=== PATIENT | male | born 1960 | race Caucasian/White ===

== ENCOUNTER 2023-09-21 08:45 | Outpatient (CLI) | payer MEDICARE, BC, SELFPAY | END 2023-09-21 08:46 | disposition home or self-care (01) | PROVIDERS: PCP Family Medicine; Visit Provider Family Medicine | DX: Z00.00 Encounter for general adult medical examination without abnormal findings (principal); E78.2 Mixed hyperlipidemia; I10 Essential (primary) hypertension; Z12.5 Encounter for screening for malignant neoplasm of prostate | CPT/HCPCS: 80048; 80061; 84460; G0103 ==

== ENCOUNTER 2023-10-14 06:21 | Outpatient (CLI) | payer MEDICARE, BC, SELFPAY ==
--- NOTE | 2023-10-14 07:53 | W.ANESCHARGE ---
Anesthesia Charges Start Date/Time Anesthesia Start Date: 10/14/23 Anesthesia Start Time: 07:15 Stop Date/Time Anesthesia Stop Date: 10/14/23 Anesthesia Stop Time: 07:50
--- NOTE | 2023-10-14 09:16 | W.ANESCHARGE ---
Anesthesia Charges Start Date/Time Anesthesia Start Date: 10/14/23 Anesthesia Start Time: 07:15 Stop Date/Time Anesthesia Stop Date: 10/14/23 Anesthesia Stop Time: 07:50
== END 2023-10-14 06:22 | disposition home or self-care (01) ==
LOC: OP CLINIC 06:22
PROVIDERS: PCP Family Medicine; Visit Provider Surgery
DX: Z12.11 Encounter for screening for malignant neoplasm of colon (principal); D12.0 Benign neoplasm of cecum; D12.2 Benign neoplasm of ascending colon; D12.3 Benign neoplasm of transverse colon; D12.5 Benign neoplasm of sigmoid colon; Z83.719 Family history of colon polyps, unspecified
CPT/HCPCS: 00811; 45385; 88305; J2704

== ENCOUNTER 2023-11-15 08:59 | Outpatient (CLI) | payer MEDICARE, BC, SELFPAY | END 2023-11-15 09:00 | disposition home or self-care (01) | PROVIDERS: PCP Family Medicine; Visit Provider Family Medicine | DX: Z01.818 Encounter for other preprocedural examination (principal) | CPT/HCPCS: 80048; 85025 ==

== ENCOUNTER 2025-01-23 08:41 | Outpatient (CLI) | payer MEDICARE, BC, SELFPAY | END 2025-01-23 08:42 | disposition home or self-care (01) | PROVIDERS: PCP Family Medicine; Visit Provider Family Medicine | DX: E78.2 Mixed hyperlipidemia (principal); Z13.9 Encounter for screening, unspecified; Z12.5 Encounter for screening for malignant neoplasm of prostate | CPT/HCPCS: 80048; 80061; 84460; G0103 ==